=== PATIENT | female | born 1960 | race Two or more races ===

== ENCOUNTER 2023-08-05 19:15 | Inpatient (IN) | payer OTHER ==
[~2023-08-05] VITALS: Ht 157.5 cm; Wt 47.0 kg
[2023-08-05 22:00] VITALS: BP 121/73; PULSE 114; RESP 30; O2SAT 92
[2023-08-05 22:50] VITALS: BP 128/70; PULSE 120; RESP 27; TEMP 98.2; O2SAT 92
[2023-08-05 23:00] VITALS: PULSE 105; RESP 29; O2SAT 96
[2023-08-05 23:11] VITALS: PULSE 102; RESP 26; O2SAT 95
[2023-08-05] MEDS ORDERED: methylPREDNISolone SOD SUCC 40 MG/ML VL IV ONE (23:30)
[2023-08-05 23:44] VITALS: BP 128/70; PULSE 102; RESP 26; TEMP 98.2; O2SAT 95
[2023-08-05 23:44] LABS: Rapid Influenza A Negative (Negative); Rapid Influenza B Negative (Negative)
[2023-08-05 23:44] LABS: Basophils # (auto) 0 10 ^3/uL (0-0.2); Basophils % (auto) 0.1 % (0.0-2.0); Eosinophils # (auto) 0 10 ^3/uL (0-0.8); Hematocrit 42.5 % (36.0-46.0); Hemoglobin 14.4 g/dL (12.2-16.2); Lymphocytes # (auto) 0.5 10 ^3/uL (0.4-5.4); Lymphocytes % (auto) 7.4 % (10.0-50.0); Mean Corpuscular Hemoglobin 31.7 pg (28.0-32.0); Mean Corpuscular Volume 93.2 fL (80.0-100.0); Monocytes # (auto) 0.1 10 ^3/uL (0-1.3); Monocytes % (auto) 0.9 % (0.0-12.0); Neutrophils # (auto) 5.7 10 ^3/uL (1.6-8.6); Neutrophils % (auto) 91.6 % (37.0-80.0); Nucleated Red Blood Cells % 0.1 %; Red Blood Cells 4.56 10^6/uL (4.0-5.20); Red Cell Distribution Width 14.3 % (11.8-14.3); White Blood Cell 6.3 10^3/uL (4.4-10.8)
[2023-08-05 23:58] LABS: Alanine Aminotransferase 44 U/L (7-40); Albumin 4.5 g/dL (3.2-4.8); Alkaline Phosphatase 96 U/L (46-116); Anion Gap 5 (5-15); Aspartate Aminotransferase 27 U/L (13-40); BUN/Creatinine Ratio 14.3 (10.0-20.0); Bilirubin, Total 0.3 mg/dL (0.2-1.0); Blood Urea Nitrogen 12 mg/dL (9-23); Calcium 9.1 mg/dL (8.7-10.4); Carbon Dioxide 31 mmol/L (20-30); Chloride 98 mmol/L (98-107); Glucose 171 mg/dL (74-106); Potassium 4.2 mmol/L (3.5-5.1); Sodium 134 mmol/L (136-145)
[2023-08-05 23:59] LABS: Total Protein 7.3 g/dL (5.7-8.2)
[2023-08-06] VITALS (32 sets, daily range): BP systolic 101–138; BP diastolic 59–93; PULSE 77–108; RESP 18–30; TEMP 97.7–98.6; O2SAT 75–100
[2023-08-06 00:07] LABS: Base Excess 1.2 mmol/L (-2.0-2.0)
[2023-08-06 00:39] LABS: COVID19 ANTIGEN SOFIA FIA NEGATIVE (NEGATIVE)
[2023-08-06] MEDS: guaiFENesin-DM 100/10mg/5ml SYR PO PRN ×4 (01:32→18:58)
[2023-08-06] MEDS: ALBUTEROL SULF 2.5 MG/0.5ML(0.5%) NEB SOLN NEB SCH ×3 (06:36→18:13)
[2023-08-06] MEDS ORDERED: FLUT250M2 INH (06:40)
[2023-08-06] MEDS ORDERED: ALBU108A5 IN (06:42)
[2023-08-06] MEDS: IPRATROPIUM BROM 0.5 MG/2.5ML INH SOL NEB PRN (10:29)
[2023-08-06] MEDS ORDERED: cefTRIAXone 1GM/50ML D5W 50 ML IV ONE (10:30)
[2023-08-06] MEDS ORDERED: AZITHROMYCIN 500MG/ 250ML 250 ML IV ONE (10:30)
[2023-08-06] MEDS ORDERED: LORazepam 2MG/ML-1ML VIAL IV PRN (10:30)
[2023-08-06] MEDS ORDERED: ACETAMINOPHEN 500 MG TAB PO PRN (10:30)
[2023-08-06] MEDS: IPRATROPIUM BROM 0.5 MG/2.5ML INH SOL NEB SCH ×2 (12:09→18:14)
[2023-08-06] MEDS: methylPREDNISolone SOD SUCC 40 MG/ML VL IV SCH ×2 (12:26→21:13)
[2023-08-06 13:48] LABS: Urine Bacteria NONE SEEN /hpf (None Seen); Urine Blood Negative /uL (Negative); Urine Clarity Clear (Clear); Urine Color Yellow (Yellow); Urine Protein, UAD TRACE (Negative); Urine Specific Gravity 1.021 (1.001-1.035); Urine Urobilinogen Normal (Negative); Urine WBC 5 /hpf (0 - 5); Urine pH 5.5 (5.0-8.0)
[2023-08-07] VITALS (32 sets, daily range): BP systolic 105–140; BP diastolic 50–85; PULSE 63–125; RESP 13–29; TEMP 97.4–98.4; O2SAT 87–100
[2023-08-07] MEDS: guaiFENesin-DM 100/10mg/5ml SYR PO PRN ×3 (00:52→16:30)
[2023-08-07] MEDS: IPRATROPIUM BROM 0.5 MG/2.5ML INH SOL NEB PRN (03:39)
[2023-08-07 06:58] LABS: Chloride 95 mmol/L (98-107); Potassium 5.2 mmol/L (3.5-5.1); Sodium 133 mmol/L (136-145)
[2023-08-07 06:59] LABS: Anion Gap 3 (5-15); Calcium 8.9 mg/dL (8.7-10.4); Carbon Dioxide 35 mmol/L (20-30)
[2023-08-07 07:04] LABS: BUN/Creatinine Ratio 16.2 (10.0-20.0); Basophils # (auto) 0 10 ^3/uL (0-0.2); Basophils % (auto) 0.1 % (0.0-2.0); Blood Urea Nitrogen 11 mg/dL (9-23); Eosinophils # (auto) 0 10 ^3/uL (0-0.8); Glucose 133 mg/dL (74-106); Hematocrit 39.3 % (36.0-46.0); Hemoglobin 13.3 g/dL (12.2-16.2); Lymphocytes % (auto) 8.6 % (10.0-50.0); Mean Corpuscular Hemoglobin 31.6 pg (28.0-32.0); Mean Corpuscular Hgb Conc. 33.8 g/dL (32.0-36.0); Mean Corpuscular Volume 93.6 fL (80.0-100.0); Monocytes # (auto) 0.5 10 ^3/uL (0-1.3); Neutrophils # (auto) 9.8 10 ^3/uL (1.6-8.6); Neutrophils % (auto) 87.3 % (37.0-80.0); Nucleated Red Blood Cells % 0.1 %; Red Cell Distribution Width 14.2 % (11.8-14.3); White Blood Cell 11.3 10^3/uL (4.4-10.8)
[2023-08-07] MEDS: ALBUTEROL SULF 2.5 MG/0.5ML(0.5%) NEB SOLN NEB SCH ×4 (07:19→22:42)
[2023-08-07] MEDS: IPRATROPIUM BROM 0.5 MG/2.5ML INH SOL NEB SCH ×4 (07:19→22:42)
[2023-08-07] MEDS: methylPREDNISolone SOD SUCC 40 MG/ML VL IV SCH ×2 (09:09→21:57)
[2023-08-07] MEDS: cefTRIAXone 1GM/50ML D5W 50 ML IV SCH (09:09)
[2023-08-07] MEDS: AZITHROMYCIN 500MG/ 250ML 250 ML IV SCH (09:10)
[2023-08-07] MEDS ORDERED: SODIUM ZIRCONIUM CYCL 10 GM PAK PO ONE (10:00)
[2023-08-07] MEDS: PROMETHAZINE W/CODEINE 5 ML ORAL SYRUP PO PRN ×2 (10:38→21:57)
[2023-08-08] VITALS (32 sets, daily range): BP systolic 99–143; BP diastolic 62–84; PULSE 80–113; RESP 18–28; TEMP 97.6–98.6; O2SAT 85–100
[2023-08-08] MEDS: IPRATROPIUM BROM 0.5 MG/2.5ML INH SOL NEB SCH ×6 (02:08→22:02)
[2023-08-08] MEDS: ALBUTEROL SULF 2.5 MG/0.5ML(0.5%) NEB SOLN NEB SCH ×6 (02:08→22:02)
[2023-08-08] MEDS: guaiFENesin-DM 100/10mg/5ml SYR PO PRN ×3 (02:30→23:25)
[2023-08-08] MEDS: PROMETHAZINE W/CODEINE 5 ML ORAL SYRUP PO PRN ×3 (04:43→19:59)
[2023-08-08 05:06] LABS: Anion Gap 2 (5-15); Carbon Dioxide 40 mmol/L (20-30); Chloride 93 mmol/L (98-107); Potassium 4.6 mmol/L (3.5-5.1); Sodium 135 mmol/L (136-145)
[2023-08-08 05:07] LABS: Calcium 9.2 mg/dL (8.7-10.4)
[2023-08-08 05:12] LABS: BUN/Creatinine Ratio 15.6 (10.0-20.0); Blood Urea Nitrogen 12 mg/dL (9-23); Glucose 154 mg/dL (74-106)
[2023-08-08] MEDS: methylPREDNISolone SOD SUCC 40 MG/ML VL IV SCH ×2 (07:39→22:24)
[2023-08-08] MEDS: cefTRIAXone 1GM/50ML D5W 50 ML IV SCH (07:39)
[2023-08-08] MEDS: AZITHROMYCIN 500MG/ 250ML 250 ML IV SCH (07:40)
[2023-08-09] VITALS (30 sets, daily range): BP systolic 114–152; BP diastolic 72–90; PULSE 78–110; RESP 18–26; TEMP 97.8–98.2; O2SAT 88–100
[2023-08-09] MEDS: IPRATROPIUM BROM 0.5 MG/2.5ML INH SOL NEB SCH ×6 (02:08→21:58)
[2023-08-09] MEDS: ALBUTEROL SULF 2.5 MG/0.5ML(0.5%) NEB SOLN NEB SCH ×6 (02:08→21:58)
[2023-08-09] MEDS: PROMETHAZINE W/CODEINE 5 ML ORAL SYRUP PO PRN ×3 (03:31→22:05)
[2023-08-09] MEDS: guaiFENesin-DM 100/10mg/5ml SYR PO PRN (07:35)
[2023-08-09] MEDS: cefTRIAXone 1GM/50ML D5W 50 ML IV SCH (07:36)
[2023-08-09] MEDS: methylPREDNISolone SOD SUCC 40 MG/ML VL IV SCH ×2 (07:36→22:05)
[2023-08-09] MEDS: AZITHROMYCIN 250 MG TAB PO SCH (07:36)
[2023-08-10] VITALS (14 sets, daily range): BP systolic 108–120; BP diastolic 67–71; PULSE 79–113; RESP 18–25; TEMP 97.6–98.2; O2SAT 91–100
[2023-08-10] MEDS: ALBUTEROL SULF 2.5 MG/0.5ML(0.5%) NEB SOLN NEB SCH ×4 (02:08→13:49)
[2023-08-10] MEDS: IPRATROPIUM BROM 0.5 MG/2.5ML INH SOL NEB SCH ×4 (02:08→13:49)
[2023-08-10] MEDS: cefTRIAXone 1GM/50ML D5W 50 ML IV SCH (10:30)
[2023-08-10] MEDS: PROMETHAZINE W/CODEINE 5 ML ORAL SYRUP PO PRN (10:31)
[2023-08-10] MEDS: AZITHROMYCIN 250 MG TAB PO SCH (10:31)
[2023-08-10] MEDS: methylPREDNISolone SOD SUCC 40 MG/ML VL IV SCH (10:31)
[2023-08-10 10:33] LABS: Base Excess 8.4 mmol/L (-2.0-2.0)
== END 2023-08-10 16:40 | disposition home or self-care (01) | DRG 177 ==
LOC: DOU IN ICU 21:53
PROVIDERS: ADMIT Nurse Practitioner Family; ATTEND Internal Medicine
DX: J15.69 Pneumonia due to other Gram-negative bacteria (principal); J96.21 Acute and chronic respiratory failure with hypoxia; J44.0 Chronic obstructive pulmonary disease with (acute) lower respiratory infection; J44.1 Chronic obstructive pulmonary disease with (acute) exacerbation; R64 Cachexia; Z68.1 Body mass index [BMI] 19.9 or less, adult; I07.1 Rheumatic tricuspid insufficiency; E87.5 Hyperkalemia; Z20.822 Contact with and (suspected) exposure to COVID-19; R00.0 Tachycardia, unspecified; Z90.710 Acquired absence of both cervix and uterus; Z87.891 Personal history of nicotine dependence; Z90.49 Acquired absence of other specified parts of digestive tract; J15.9 Unspecified bacterial pneumonia
CPT/HCPCS: 36415; 36600; 71045; 80048; 80053; 81001; 82805; 83880; 84484; 85025; 85379; 87070; 87081; 87205; 87426; 87804; 93306; 94640; G0378; J0696